=== PATIENT | female | born 1980 | race Caucasian/White ===

== ENCOUNTER 2019-10-28 12:49 | Emergency (ER) | payer OTHER, SELFPAY ==
[2019-10-28 12:51] VITALS: BP 134/77; PULSE 75; RESP 17; TEMP 37.1; O2SAT 99; BMI 34.3
--- NOTE | 2019-10-28 13:24 | ED.VIS.LOWEX ---
History of Present Illness Informant: Patient, Family Occurred: Yesterday Mechanism/Context: - - no injury Onset: Yesterday Context: Gradual Onset Timing: Continuous Quality of Pain: Aching Location: right calf Current Severity: Moderate Maximum Severity: Moderate Worsened by: movement Relieved by: rest Associated Symptoms: Negative for: Parasthesia, Weakness, Loss of Funtion Narrative: 39-year-old female presents with right calf pain. She has had some aching and throbbing in her calf since yesterday. Denies any specific inciting injury or trauma. Denies numbness tingling weakness chest pain or shortness of breath or hemoptysis recent travel or surgery history of DVT or PE or use of oral control pills. She did have superficial thrombophlebitis that she developed after she was and delivered but was not on anticoagulation and that was about 7 years ago. Tetanus Immunization: Unknown Prior similar symptoms: Yes Recent Illness/Hospitalization: No <Cornelius Betts - Last Filed: 10/28/19 13:24> <Ernesto Resendiz - Last Filed: 10/28/19 13:47> Chief Complaint: Lower Extremity Injury Past Medical History Prior records reviewed: Yes Past Medical History: None Surgical History: no surgical history Lives: With Family Smoking Status: Never smoker Alcohol: None <Cornelius Betts - Last Filed: 10/28/19 13:24> <Ernesto Resendiz - Last Filed: 10/28/19 13:47> - Allergies and Home Meds Allergies/Adverse Reactions: Allergies No Known Allergies Allergy (Verified 10/28/19 12:50) Primary Care Physician: Rena Caraballo MD [Primary Care Provider] - Review of Systems All systems negative except as indicated General: Denies: Chills, Fever Eyes: Denies: Visual changes - bilaterally, Blurred Vision - bilaterally, Diplopia ENT: Denies: Rhinorrhea, Sore throat Cardiovascular: Denies: Chest pain, Palpitations, Heart racing Respiratory: Denies: Dyspnea, Cough, Sputum Gastrointestinal: Denies: Abdominal pain, Nausea, Vomiting, Diarrhea Genitourinary: Denies: Dysuria, Hematuria, Frequency Musculoskeletal: Reports: Extremity Pain. Denies: Myalgias, Arthralgias, Neck pain, Back pain, Swelling Skin: Denies: Rash, Abscess, Abrasions, Wounds Neurological: Denies: Headache, Weakness, Parasthesia <Cornelius Betts - Last Filed: 10/28/19 13:24> Physical Exam Vital Signs/Narrative: Vital Signs Temp Pulse Resp BP Pulse Ox 10/28/19 12:51 98.7 F 75 17 134/77 H 99 Inital Vital Signs reviewed: Yes - Extremity Exam Right Tib fib: - - Normal inspection of right leg. No swelling no bruising no erythema no rash no palpable cords, calf is nontender. She does have varicose veins noted. She has normal range of motion actively of her right hip and knee and ankle. DP and PT pulse are both normal. General: Well nourished, Well developed Head: Normocephalic, Atraumatic Eyes: Perrl, EOMI ENT: No Trauma, Moist Mucous Membranes Neck: Nontender, Full ROM Cardiovascular: Regular rate, Regular rhythm, No murmurs Respiratory: No distress, CTA bilaterally, Chest nontender Abdomen: Soft, Nontender, Nondistended, Normal bowel sounds, No masses Back: Nontender Skin: Normal color, No rash, No Trauma Neurological: Alert, Oriented x3 Psychological: Normal affect, Normal Mood <Cornelius Betts - Last Filed: 10/28/19 13:24> Vital Signs/Narrative: Vital Signs Temp Pulse Resp BP Pulse Ox 10/28/19 12:51 98.7 F 75 17 134/77 H 99 <Ernesto Resendiz - Last Filed: 10/28/19 13:47> Diagnostic/Tx/Re-eval - Medical Decision Making Discussed with patient that at this time unfortunately we are unable to obtain a venous ultrasound as they have left for the day because it is Wednesday afternoon currently. I will give her the order to have this done first thing in the morning. Patient is low risk as she does not have any recent travel or surgery she is not on oral control and she has never had a DVT in the past and does not have any history of clotting disorder and at this time I do not feel she needs Lovenox <Cornelius Betts - Last Filed: 10/28/19 13:24> - Medical Decision Making Patient was seen with Cornelius the PA agree with history and physical as above, patient complains of pain to the right lower leg she has a history of superficial thrombophlebitis she has extensive varicosities no signs of infection no signs of deep DVT full range of motion neurovascular function the foot unremarkable duplex scan is unavailable she will obtain that through outpatient mechanisms and follow-up with her physician she has been referred to physician to be seen for the varicosities not followed up see the chart for full details <Ernesto Resendiz - Last Filed: 10/28/19 13:47> ED Disposition <Cornelius Betts - Last Filed: 10/28/19 13:24> <Ernesto Resendiz - Last Filed: 10/28/19 13:47> - Plan for ED Patient: Disposition: Home or Assisted Living Diagnosis: Pain of right calf Instructions: ED Peripheral Edema, Unilateral Referrals: Rena Caraballo MD [Primary Care Provider] -
== END 2019-10-28 13:59 | disposition home or self-care (01) ==
PROVIDERS: Emergency Provider Physician Assistant Medical; PCP Family Medicine
DX: M79.661 Pain in right lower leg (principal); I83.90 Asymptomatic varicose veins of unspecified lower extremity; Z86.72 Personal history of thrombophlebitis
CPT/HCPCS: 99282

== ENCOUNTER → 2019-10-29 11:24 | Outpatient (CLI) | payer SELFPAY ==
[2019-10-28 12:51] VITALS: BMI 34.3
--- NOTE | 2019-10-29 11:41 | VDLE_ITS ---
Reason For Study: Pain RIGHT LEFT GSV is normal. CFV is compressible, spontaneous, phasic, CFV is compressible, spontaneous, phasic, competent, and demonstrates normal competent and demonstrates normal augmentation. augmentation. FV is compressible, spontaneous, phasic, competent and demonstrates normal augmentation. POP V is compressible, spontaneous, phasic, competent and demonstrates normal augmentation. T/P Trunk is compressible. PTV is compressible. RT PerV is compressible. Procedure Exam performed in department. A preliminary report was called and/or faxed to ED. Interpretation Summary Deep veins of the right lower extremity are patent and compressible segmentally. There is no evidence of right lower extremity deep vein thrombosis. Valvular competence appears intact within the proximal deep venous system on the right . The right great saphenous vein appears patent and compressible segmentally. Ordering Physician: Cornelius Betts Referring Physician: Rena Caraballo Performed By: Cece Zhang RDCS, RVT
== END ==
PROVIDERS: PCP Family Medicine; Visit Provider Family Medicine
DX: M79.604 Pain in right leg (principal)
CPT/HCPCS: 93971

== ENCOUNTER 2021-03-20 12:55 | Emergency (ER) | payer OTHER, SELFPAY ==
[2021-03-20 12:56] VITALS: BP 153/86; PULSE 87; RESP 16; TEMP 36.2; O2SAT 98; BMI 31.8
--- NOTE | 2021-03-20 13:24 | EDS_ITS ---
HPI History of Present Illness Chief Complaint: Lower Extremity Injury Informant: patient Narrative Narrative: Patient presents with a swollen and just slightly sore area on the medial posterior aspect of her left leg/knee. She reports having a blood clot in there about 8 years ago after the of her child. That was her last . She was treated with Motrin and rest. She was not on anticoagulation. It evidently did resolve. My suspicion is this may have been superficial venous thrombosis. She does report a recent trip to [place] and [facility] from vacation. They rode in a van. However they did get out multiple times. She states it was only about an 8-hour trip each way. This occurred over the last 2 weeks. She has no chest pain. No trouble breathing. No lightheadedness or syncope. She denies any active medical problems. No medications No known allergies PFSH PFS Medical History Arthritis Non-smoker Varicose veins of both lower extremities Home Medications ibuprofen 400 mg PO Q6H PRN 03/20/21 [History Last Taken Unknown] Allergy/AdvReac Type Severity Reaction Status Date / Time No Known Allergies Allergy Verified 03/20/21 12:58 Social History Smoking Status: Never smoker ROS ROS ED Constitutional Constitutional ED: Denies chills or fever(s) ENT ENT ED: Denies rhinorrhea or sore throat Cardiovascular Cardiovascular: Denies chest pain, palpitations or racing heartbeat Respiratory/Chest Respiratory/Chest: Denies cough, dyspnea or dyspnea on exertion Gastrointestinal Gastrointestinal: Denies abdominal pain, nausea or vomiting Genitourinary Genitourinary ED: Denies hematuria Musculoskeletal Musculoskeletal: Reports other Details: See history of present illness ; Denies back pain or neck pain Integumentary Denies rash Neurologic Neurologic: Denies headache(s) Hematologic/Lymphatic Hematologic/Lymphatic: Denies easy bleeding or easy bruising Allergic/Immunologic Allergic/Immunologic ED: Denies urticaria EXAM Physical Exam Const Vital Signs: 03/20/21 12:56 Temperature 97.1 F L Temperature Source Temporal Pulse Rate 87 Respiratory Rate 16 Blood Pressure 153/86 H Blood Pressure Mean 108 Pulse Ox 98 Oxygen Delivery Method Room Air Positive well nourished and well developed General Appearance ED: well developed HEENT normocephalic and atraumatic Neck supple Chest Wall inspection of chest normal Resp normal respiratory effort and clear to auscultation bilaterally Cardio regular rate, regular rhythm and no murmurs GI non-tender Palpation: soft Back/Spine no CVA tenderness Extremity Extremity Narrative: Patient does have varicosities of both legs. However there is a firmer area just below the knee medially on the right leg. This area is a little bit firmer. It is not red. Is not warm. She does not have diffusely distended veins. There is no notable difference in size of her calf at approximately 10 cm below tibial tuberosity. Neuro Sensorium / Orientation: alert Skin Skin Narrative: See above Rashes: no rashes MDM MDM MDM Narrative Medical decision making narrative: Ultrasound shows some superficial phlebitis but no deep venous thrombosis. This sounds like what she had before. She will use [id number] ibuprofen and warm compresses. She has an appointment with a new physician on Wednesday for follow-up. I explained that they may end up getting repeat ultrasounds to make sure this is improving and not getting worse. We did explain that these occasionally can spread to the deep venous system. If she develops chest pain, trouble breathing, further leg pain or swelling she may need to return. Radiography Diagnostic Testing: Radiology Impression Venous Doppler Study 03/20/21 13:24 Interpretation Summary There is no evidence of right lower extremity deep vein thrombosis. Right great saphenous vein appears patent and compressible segmentally. Superficial thrombophlebitis varicose veins right lower extremity, location not specified Abbreviated COVID-19 protocol utilized Ordering Physician: Anderson Trujillo Performed By: Chris Rodriguez RVLv Discharge Plan Triage Chief Complaint: Lower Extremity Injury ED Provider: Anderson Trujillo Dx/Rx/DC Orders Clinical Impression: Phlebitis of leg, right, superficial Instructions: ED Thrombophlebitis, Superficial Prescriptions: No Action ibuprofen 200 mg Capsule 400 mg PO Q6H PRN (Reason: Pain) RF: 0 Primary Care Provider: Rena Caraballo Referrals: Rena Caraballo MD [Primary Care Provider] - Keep [facility] appointment Disposition Disposition: Home, Self Care
--- NOTE | 2021-03-20 13:24 | VDLE_ITS ---
Reason For Study: swelling RIGHT GSV is normal. CFV is compressible, spontaneous, phasic, competent and demonstrates normal augmentation. FV is compressible, spontaneous, phasic, competent and demonstrates normal augmentation. POP V is compressible, spontaneous, phasic, competent and demonstrates normal augmentation. T/P Trunk is compressible. PTV is compressible. RT PerV is compressible. Varicose Veins are dilated and noncompressible. Procedure This is a venous duplex using B-mode, color flow and spectral Doppler. Exam performed portable in ED. The exam was abbreviated due to the COVID 19 protocol. The exam was diagnostic. A preliminary report was called and/or faxed to Dr. Diaz. VL/Venous Duplex US, Unilateral Interpretation Summary There is no evidence of right lower extremity deep vein thrombosis. Right great saphenous vein appears patent and compressible segmentally. Superficial thrombophlebitis varic ose veins right lower extremity, location not specified Abbreviated COVID-19 protocol utilized Ordering Physician: Anderson Trujillo Performed By: Chris Rodriguez RVT
[2021-03-20 14:36] VITALS: PULSE 85; RESP 16; O2SAT 98
== END 2021-03-20 14:37 | disposition home or self-care (01) ==
PROVIDERS: Emergency Provider Emergency Medicine; PCP Family Medicine
DX: I80.01 Phlebitis and thrombophlebitis of superficial vessels of right lower extremity (principal); I83.93 Asymptomatic varicose veins of bilateral lower extremities; M19.90 Unspecified osteoarthritis, unspecified site; Z86.718 Personal history of other venous thrombosis and embolism
CPT/HCPCS: 93971; 99282